=== PATIENT | male | born 1965 | race Caucasian/White ===

== ENCOUNTER 2023-06-04 17:00 | Emergency (ER) | payer OTHER, SELFPAY ==
[2023-06-04 17:01] VITALS: BP 167/103; PULSE 79; RESP 16; TEMP 37; O2SAT 94; BMI 28.6
--- NOTE | 2023-06-04 17:02 | ED_ITS ---
HPI - Eye Problem General Chief complaint: Eye Problems Stated complaint: acid in eye Time Seen by Provider: 06/04/23 17:41 Source: patient and RN notes reviewed Mode of arrival: ambulatory Limitations: no limitations History of Present Illness HPI Narrative: This is a 58-year-old male presenting to the emergency department with complaints of right eye pain since noon today. Patient states that he was cleaning a boat with concentrated acidic belt cleaner and this belt cleaner liquid dropped into his eye. He has had burning sensation in his right eye since. He went to an urgent care as well as [facility], they did not have pH strips and was told to come to the ER. He states that the burning sensation has been constant and is worsening now. He reports no vision changes. He did not rinse out his eye. He does not wear contact lenses. He denies any other complaints or concerns at this time. MD chief complaint: eye pain, eye redness and vision change Duration: constant Location: right eye Eye Symptoms: burning and redness Place: home Mechanism: chemical exposure Severity: moderate If Pain, Quality: burning Associated symptoms: none Treatments Prior to Arrival: none Related Data Previous Rx's Medication Instructions Recorded erythromycin 5 mg/gram (0.5 %) eye 0.5 inch ophthalmic (eye) QID #3.5 06/04/23 ointment grams ibuprofen 600 mg tablet 600 mg PO Q6H PRN pain #30 tabs 06/04/23 oxycodone-acetaminophen 5 mg-325 1 tab PO Q4-6H PRN pain #10 tabs 06/04/23 mg tablet (Percocet) Allergies Allergy/AdvReac Type Severity Reaction Status Date / Time Penicillins Allergy Unknown Verified 06/04/23 17:05 Review of Systems Review of Systems: Yes all other systems are reviewed and are negative Constitutional: Constitutional: Reports as per [facility] Past Medical History Attestation statement: The following information was validated with the patient. Social History Social History Use of substances other than those prescribed or required for medical reasons: No Advance Directives: No Advance Directives Information Provided: No Physical Exam Vital Signs: Vital Signs: Last Vital Signs Temp 98.6 F 06/04/23 17:01 Pulse 77 06/04/23 18:46 Resp 16 06/04/23 18:46 BP 172/100 H 06/04/23 18:46 Pulse Ox 98 06/04/23 18:46 O2 Del Method Room Air 06/04/23 18:46 BMI result Body Mass Index 28.6 Const: General: cooperative, comfortable and no acute distress Orientation/consciousness: patient oriented x3 Limitations: no limitations HEENT: Head: Yes normal to inspection, Yes normocephalic and Yes atraumatic Ears: hearing grossly normal bilaterally General nose exam: Normal external nose present Face and sinus: Yes normal facial exam Mouth: Normal oral and palatal mucosa present, oropharynx normal and moist mucous membranes Throat: Yes posterior oropharynx normal Eyes: Other: Right Conjunctiva is injected with chemosis noted throughout. Fluorescein uptake at the 6 o'clock position on the iris, does not overlap the pupil. Pupillary response intact. Extraocular movements intact without pain. Left eye unremarkable. PH of the right eye is 7. Intra ocular pressure 23mmHg on the right, 19mmHg on the left. Eyelids are unremarkable. Eyelids: Yes eyelids normal Sclerae: sclerae normal Pupils: Equal, round and reactive pupils present EOM: EOMs intact bilaterally Neck: Neck: Yes normal visual inspection, Yes full ROM and Yes no lymphadenopathy Lymphatic: no lymphadenopathy noted Chest: Chest palpation & inspection: normal inspection of the chest Resp: Effort & Inspection: normal respiratory effort and able to speak in complete sentences Auscultation: clear to auscultation bilaterally, no crackles, no rales, no rhonchi and no wheezes Cardio: Rate: regular rate Rhythm: regular rhythm Heart sounds: S1 normal heart sound present and S2 normal heart sound present GI: Inspection: Yes normal to inspection Skin: General skin exam: no rashes or lesions noted Trauma: no lacerations or abrasions Wounds: no wounds Neuro: General: patient oriented x3 and moves all extremities Cranial nerves: Yes Equal, round and reactive pupils present Extrem: General: Yes normal to inspection Right upper extremity: normal to inspection Left upper extremity: normal to inspection Right lower extremity: normal to inspection Left lower extremity: normal to inspection Course Course Course Narrative: RME: 58yo M w/PMHx HTN c/o accidentally getting acid [WAB- Aluminum Wash (Acid) cleaning product for trucks/boats] in 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 Admits was wearing protective glasses. Tried washing eye out. denies wearing glasses or contacts R eye with diffuse conjunctival injection/chemosis Tetracaine, fluorescein ordered Full HPI, ROS and PE to be performed by primary ED provider. Reevaluation(s) Reevaluation #1: 20 minutes after eye wash, pH was tested which was 7. Intraoccular pressures WNL BL. No changes in visual acuity. Fluoresceine stain performed with +uptake in the 6 o'clock position with chemosis noted. Rechecked pH of eye 1.5 hours post irrigation, still pH of 7. Pt medicated with percocet, zofran as he had become nauseated due to the pain. Pt with some relief with tetracaine. D/C on erythromycin, advised to call eye physician tomorrow for follow up. Pt given return precautions, pt stable for d/c. Medications Administered Discontinued Medications Generic Name Dose Route Start Last Admin Trade Name Freq PRN Reason Stop Dose Admin Hydrocodone Bitart/Acetaminophen 1 tab 06/04/23 18:40 06/04/23 19:28 Hydrocodone Bit/Acetam 5/325 Tablet PO 06/04/23 18:41 1 tab ONCE ONE Administration Fluorescein Sodium 1 strip 06/04/23 17:05 06/04/23 19:35 Fluorescein Sodium Strip EYE-RIGHT 06/04/23 17:06 1 strip ONCE ONE Administration Ondansetron HCl 4 mg 06/04/23 18:40 06/04/23 19:28 Ondansetron Odt 4 Mg Tab.Rapdis TRANSLINGU 06/04/23 18:41 4 mg ONCE ONE Administration Tetracaine HCl 1 drop 06/04/23 17:05 06/04/23 19:35 Tetracaine Hcl/Pf 0.5% Oph Rena 4 Ml Drops EYE-RIGHT 06/04/23 17:06 1 drop ONCE ONE Administration Medical Decision Making Medical Decision Making MDM Narrative: This is a 58-year-old male presenting to the emergency department for evaluation of right eye chemical exposure which occurred at noon today. He states that he was using concentrated boat cleaning acid and this dripped into his right eye. He tried wiping this out of his eye and has had burning sensation since. He went to a urgent care facility and they were unable to treat him appropriately. He has not rinse out his eye since this chemical exposure. He admits to having blurred vision and burning sensation in his right eye. He denies any symptoms in his left eye. Pt was immediately brought to eye wash station and rinsed eye for 15 minutes. Differential Diagnosis Differential Diagnoses: The differential diagnosis associated with the presentation includes Chemical burn, glaucoma-unlikely, corneal abrasion, corneal laceration Admission/Observation Consideration of admission/observation: Escalation of care including admission/observation considered Radiology Impression Discussion of test interpretation with radiology: I have reviewed the radiologist's reading. External Record Review External record reviewed: Inpatient record, Office record, Outpatient record, Prior outpatient labs, Prior outpatient radiology, Primary care record and Outside ED record Discharge Plan Discharge Clinical Impression: Corneal abrasion, Chemical burn Patient Disposition: Home, Self-Care Instructions: Corneal Abrasion (ED), Eye Foreign Body (ED) Additional Instructions: You exposure right eye to a concentrated chemical which caused you to irritate the surface of your eye. You also have a scratch on your eye surface. Please use prescribed erythromycin ointment. Use as directed. Take Percocet as needed for severe pain only. You may take ibuprofen for [id number] pain. Please call Dr. Akers, eye physician tomorrow for follow up. You may also follow-up with your eye doctor. If any new or worsening symptoms occur including but not limited to worsening visual changes, increased eye pain, please return for re-evaluation. Prescriptions: New erythromycin 5 mg/gram (0.5 %) ointment 0.5 inch ophthalmic (eye) QID Qty: 3.5 0RF oxycodone-acetaminophen [Percocet] 5-325 mg tablet 1 tab PO Q4-6H PRN (Reason: pain) Qty: 10 0RF Rx Instructions: Partial Fill upon patient request. ibuprofen 600 mg tablet 600 mg PO Q6H PRN (Reason: pain) Qty: 30 0RF Referrals: Ben Akers [Physician] - Interventions: ED Discharge Assessment Last Done: 06/04/23 19:35 Discharge Date/Time: 06/04/23 19:35
[2023-06-04 18:46] VITALS: BP 172/100; PULSE 77; RESP 16; O2SAT 98
[2023-06-04] MEDS: Ondansetron ODT 4 MG TAB.RAPDIS TRANSLINGU (19:28)
[2023-06-04] MEDS: HYDROcodone Bit/Acetam 5/325 TABLET 1 TAB PO (19:28)
[2023-06-04] MEDS: Tetracaine HCl/PF 0.5% Oph Sol 4 ML DROPS 1 DROP EYE-RIGHT (19:35)
[2023-06-04] MEDS: Fluorescein Sodium STRIP 1 STRIP EYE-RIGHT (19:35)
== END 2023-06-04 19:35 | disposition home or self-care (01) ==
PROVIDERS: Emergency Provider Emergency Medicine
DX: S05.01XA Injury of conjunctiva and corneal abrasion without foreign body, right eye, initial encounter (principal); Y27.8XXA Contact with other hot objects, undetermined intent, initial encounter; Y93.9 Activity, unspecified; Y92.9 Unspecified place or not applicable; Y99.9 Unspecified external cause status
CPT/HCPCS: 99283; 99284